=== PATIENT | female | born 1965 | race Caucasian/White ===

== ENCOUNTER 2024-02-08 13:37 | Emergency (ER) | payer OTHER ==
[~2024-02-08] VITALS: Ht 167.6 cm; Wt 95.3 kg
[~2024-02-08 13:37] MED LIST: CLARITIN10 MG PO; DAYPRO600 M1 PO; EES400 MG PO; MOTRIN800 MG PO; ROBAXIN500 MG PO; ROBAXIN750 MG PO; SULFA; VIBRAMYCIN100 MG PO; VICODIN 5/500 505 MG PO; ZANAFLEX4 M1 PO; ZITHROMAX Z PA250 MG PO; [UNRECOGNIZED DRUG - OTHER] PO
[2024-02-08] MEDS ORDERED: ASPIRIN ADULT L81 M2 PO (13:50)
== END 2024-02-08 14:05 | disposition home or self-care (01) ==
LOC: ED 13:37
DX: S61.012A Laceration without foreign body of left thumb without damage to nail, initial encounter (principal); Z79.82 Long term (current) use of aspirin; Z88.0 Allergy status to penicillin; Z90.721 Acquired absence of ovaries, unilateral; W26.0XXA Contact with knife, initial encounter; Y93.89 Activity, other specified; Y92.89 Other specified places as the place of occurrence of the external cause; Y99.8 Other external cause status